=== PATIENT | female | born 1945 | race Caucasian/White ===

== ENCOUNTER → 2017-01-14 | Outpatient (REF) | payer MEDICARE, BC ==
[~2017-01-14] MED LIST: /WARF25TA PO; ACET50TA PO; CALC600T7 PO; FLUOXETINE PO; LYRICA PO; MULTTAB PO; PERC2.5T PO; PERC7.5T12 PO; PREDPOW10 PO; VITAMIN D PO
[2017-01-14 12:02] LABS: ALBUMIN 3.9 GM/DL (3.2-5.2); ALKALINE PHOSPHATASE 90 U/L (45-117); ALT/SGPT 28 U/L (12-78); ANION GAP 10 MEQ/L (8-16); AST/SGOT 19 U/L (15-37); BILIRUBIN,TOTAL 0.9 MG/DL (0.2-1.0); BLOOD UREA NITROGEN 15 MG/DL (7-18); CARBON DIOXIDE LEVEL 28 MEQ/L (21-32); CHLORIDE LEVEL 106 MEQ/L (98-107); CREATININE FOR GFR 0.82 MG/DL (0.55-1.02); GLOMERULAR FILTRATION RATE > 60.0 (>39); GLUCOSE, FASTING 100 MG/DL (83-110); POTASSIUM SERUM 4.7 MEQ/L (3.5-5.1); SODIUM LEVEL 144 MEQ/L (136-145); TOTAL PROTEIN 6.9 GM/DL (6.4-8.2)
== END ==
LOC: M SFHCPLAZ 11:11
PROVIDERS: ATTEND Internal Medicine
DX: I10 Essential (primary) hypertension (principal); M81.0 Age-related osteoporosis without current pathological fracture

== ENCOUNTER → 2017-07-15 | Outpatient (REF) | payer MEDICARE, BC ==
[2017-07-15 11:58] LABS: MEAN CORPUSCULAR VOLUME 91.4 fl (80.0-96.0); RED CELL DISTRIBUTION WIDTH 12.7 % (11.5-14.5); WHITE BLOOD COUNT 5.1 K/mm3 (4.0-10.0)
[2017-07-15 12:12] LABS: ALBUMIN 3.7 GM/DL (3.2-5.2); ALBUMIN/GLOBULIN RATIO 1.32 (1.00-1.93); ALKALINE PHOSPHATASE 74 U/L (45-117); ALT/SGPT 23 U/L (12-78); ANION GAP 8 MEQ/L (8-16); AST/SGOT 17 U/L (15-37); BILIRUBIN,TOTAL 0.7 MG/DL (0.2-1.0); BLOOD UREA NITROGEN 11 MG/DL (7-18); CALCIUM LEVEL 8.5 MG/DL (8.8-10.2); CARBON DIOXIDE LEVEL 27 MEQ/L (21-32); CHLORIDE LEVEL 109 MEQ/L (98-107); CHOLESTEROL LEVEL 189 MG/DL (<200); CREATININE FOR GFR 0.78 MG/DL (0.55-1.02); GLOMERULAR FILTRATION RATE > 60.0 (>39); GLUCOSE, FASTING 91 MG/DL (83-110); POTASSIUM SERUM 4.6 MEQ/L (3.5-5.1); SODIUM LEVEL 144 MEQ/L (136-145); TOTAL PROTEIN 6.5 GM/DL (6.4-8.2); TRIGLYCERIDES LEVEL 146 MG/DL (<150)
== END ==
LOC: M SFHCPLAZ 09:12
PROVIDERS: ATTEND Internal Medicine
DX: M19.90 Unspecified osteoarthritis, unspecified site (principal); I10 Essential (primary) hypertension; E78.00 Pure hypercholesterolemia, unspecified

== ENCOUNTER → 2019-02-23 | Outpatient (REF) | payer MEDICARE, BC ==
[2019-02-23 10:47] LABS: HEMATOCRIT 45.5 % (36.0-47.0); HEMOGLOBIN 14.8 g/dl (12.0-15.5); MEAN CORPUSCULAR HEMOGLOBIN 30.1 pg (27.0-33.0); MEAN CORPUSCULAR HGB CONC 32.5 g/dl (32.0-36.5); MEAN CORPUSCULAR VOLUME 92.7 fl (80.0-96.0); PLATELET COUNT, AUTOMATED 219 10^3/uL (150-450); RED BLOOD COUNT 4.91 10^6/uL (4.00-5.40); WHITE BLOOD COUNT 5.7 10^3/uL (4.0-10.0)
[2019-02-23 11:17] LABS: ERYTHROCYTE SEDIMENTATION RATE 10 mm/hr (0-30)
[2019-02-23 11:19] LABS: ALBUMIN 3.8 GM/DL (3.2-5.2); ALT/SGPT 27 U/L (12-78); BILIRUBIN,TOTAL 0.9 MG/DL (0.2-1.0); BLOOD UREA NITROGEN 14 MG/DL (7-18); C REACTIVE PROTEIN QUANTITATIV 0.83 MG/DL (0.00-0.30); CALCIUM LEVEL 8.7 MG/DL (8.8-10.2); CARBON DIOXIDE LEVEL 31 MEQ/L (21-32); CHLORIDE LEVEL 105 MEQ/L (98-107); CHOLESTEROL LEVEL 191 MG/DL (<200); CREATININE FOR GFR 0.75 MG/DL (0.55-1.30); GLOMERULAR FILTRATION RATE > 60.0 (>39); GLUCOSE, FASTING 90 MG/DL (70-100); HDL CHOLESTEROL 62 MG/DL (>40); LDL CHOLESTEROL 97 MG/DL (<100); MAGNESIUM LEVEL 2.3 MG/DL (1.8-2.4); NON-HDL-C 129 MG/DL; POTASSIUM SERUM 4.4 MEQ/L (3.5-5.1); SODIUM LEVEL 141 MEQ/L (136-145); TOTAL PROTEIN 7.1 GM/DL (6.4-8.2); TRIGLYCERIDES LEVEL 158 MG/DL (<150)
[2019-02-25 00:08] LABS: Lyme Disease IgG/IgM Antibodie <0.91 ISR (0.00-0.90); Lyme Disease IgM Ab Quantitati <0.80 index (0.00-0.79)
== END ==
LOC: M SFHCPLAZ 08:21
PROVIDERS: ATTEND Internal Medicine
DX: D32.0 Benign neoplasm of cerebral meninges (principal); I10 Essential (primary) hypertension; M35.3 Polymyalgia rheumatica; E78.00 Pure hypercholesterolemia, unspecified

== ENCOUNTER → 2019-03-28 | Outpatient (REF) | payer MEDICARE, BC ==
[~2019-03-28] MED LIST changes: -/WARF25TA PO; -ACET50TA PO; +COUM1TAB18 PO; +MAPA500T17 PO
[2019-03-28 12:37] LABS: BLOOD UREA NITROGEN 14 MG/DL (7-18); CREATININE FOR GFR 0.84 MG/DL (0.55-1.30); GLOMERULAR FILTRATION RATE > 60.0 (>39)
== END ==
LOC: M LABDRAWP 11:39
PROVIDERS: ATTEND Neurological Surgery
DX: D32.0 Benign neoplasm of cerebral meninges (principal)

== ENCOUNTER → 2019-08-13 | Outpatient (CLI) | payer MEDICARE, BC ==
[~2019-08-13] MED LIST changes: +D-10TAB3 PO; +HYDR-3713 PO; +MULTCAP PO; +OYST1TAB PO; +PERC5TAB12 PO; +PREG50CA PO; +PROZ20CA11 PO; +XARE10TA PO
[2019-08-13 10:12] LABS: HEMATOCRIT 44.7 % (36.0-47.0); HEMOGLOBIN 14.7 g/dl (12.0-15.5); MEAN CORPUSCULAR HGB CONC 32.9 g/dl (32.0-36.5); MEAN CORPUSCULAR VOLUME 94.3 fl (80.0-96.0); PLATELET COUNT, AUTOMATED 240 10^3/uL (150-450); RED BLOOD COUNT 4.74 10^6/uL (4.00-5.40); WHITE BLOOD COUNT 5.9 10^3/uL (4.0-10.0)
[2019-08-13 10:33] LABS: INR 1.02; PROTHROMBIN TIME 13.1 SECONDS (11.8-14.0)
[2019-08-13 10:37] LABS: ALBUMIN 3.9 GM/DL (3.2-5.2); ALT/SGPT 29 U/L (12-78); BILIRUBIN,TOTAL 1.3 MG/DL (0.2-1.0); BLOOD UREA NITROGEN 11 MG/DL (7-18); CALCIUM LEVEL 9.4 MG/DL (8.8-10.2); CARBON DIOXIDE LEVEL 28 MEQ/L (21-32); CHLORIDE LEVEL 105 MEQ/L (98-107); CREATININE FOR GFR 0.87 MG/DL (0.55-1.30); GLOMERULAR FILTRATION RATE > 60.0 (>39); GLUCOSE, FASTING 101 MG/DL (70-100); POTASSIUM SERUM 4.4 MEQ/L (3.5-5.1); SODIUM LEVEL 141 MEQ/L (136-145); TOTAL PROTEIN 6.9 GM/DL (6.4-8.2)
--- NOTE | 2019-08-13 10:59 | REP ---
PA and lateral chest: Comparison is 10/02/2013. There are no infiltrates. No pleural effusions. There are several tiny nodule like densities inferiorly in the right lung, not present previously. These are nonspecific and could represent small focal zones of atelectasis, superimposition artifact or true lung nodules. Follow-up CT is recommended for further evaluation. The lung stein otherwise clear. Cardiac size is normal. The gisel, mediastinum, skeletal structures are. Impression: There are no acute cardiopulmonary findings. There are several small nodular densities inferiorly in the right lung, nonspecific, follow-up CT is recommended for further evaluation. Electronically Signed by Ross Murray MD 08/13/2019 10:50 A
[2019-08-13 11:04] LABS: ERYTHROCYTE SEDIMENTATION RATE 11 mm/hr (0-30)
--- NOTE | 2019-08-14 08:46 | ECGEPIP ---
[facility] Test Date: 2019-08-13 Pat Name: REVA IZQUIERDO Department: Room: - Gender: Female Production Dispatcher: ESME : [id number] Requested By: Miriam Putnam Order Number: [id number] Reading MD: Alex Feng Measurements Intervals [place] Rate: 50 P: 63 SC: 163 QRS: 29 QRSD: 111 T: -10 QT: 457 QTc: 419 Interpretive Statements SINUS BRADYCARDIA WITH Trigeminy Nonspecific ST-T wave abnormalities Electronically Signed on 08-14-2019 8:45:45 EDT by Alex Feng
== END ==
LOC: M LAB 08:56
PROVIDERS: ATTEND Orthopaedic Surgery
DX: Z01.818 Encounter for other preprocedural examination (principal); M16.11 Unilateral primary osteoarthritis, right hip; Z79.01 Long term (current) use of anticoagulants

== ENCOUNTER → 2019-08-24 | Outpatient (CLI) | payer MEDICARE, BC ==
[~2019-08-24] MED LIST changes: -HYDR-3713 PO
--- NOTE | 2019-08-24 16:11 | REP ---
CT of the chest without IV contrast: Comparison is the plain film study dated 08/13/2019 where several small faintly visible nodular densities are identified inferiorly in the right lung. By CT there are no nodular densities, vertically in the right lung inferiorly. Therefore, this finding on the comparison study was probably superimposition artifact. There are no infiltrates. No effusions. The lung stein otherwise clear. There is no mediastinal or axillary lymphadenopathy. In the absence of IV contrast the study is insensitive for hilar lymphadenopathy. The unenhanced thoracic aorta is unremarkable. The cardiac size is normal. Within the visualized upper abdomen there is hepatic steatosis. There is a calculus in the gallbladder fundus. The visualized upper abdominal contents are otherwise unremarkable. Impression: Gallbladder calculus. Hepatic steatosis. There are no lung masses or nodules. The nodular densities on the comparison study are likely superimposition artifact. Otherwise, negative CT study of the chest. Electronically Signed by Ross uMrray MD 08/24/2019 04:03 P
== END ==
LOC: M RAD 13:56
PROVIDERS: ATTEND Internal Medicine
DX: R93.89 Abnormal findings on diagnostic imaging of other specified body structures (principal)

== ENCOUNTER 2019-09-03 05:52 | Inpatient (IN) | payer MEDICARE, BC ==
--- NOTE | 2019-08-27 13:10 | HPE ---
DATE OF ADMISSION: 09/03/2019 ATTENDING PHYSICIAN: Dr. Jersey Flores CHIEF COMPLAINT: Right hip pain and stiffness. HISTORY OF PRESENT ILLNESS: This is a pleasant 73-year-old female patient with progressively worsening right hip pain and stiffness who has failed to improve with conservative treatment. She has elected for right hip total arthroplasty with Dr. Jersey Flores. ALLERGIES: - AZITHROMYCIN - IBUPROFEN PAST MEDICAL HISTORY: Hypercholesterolemia, hypertension, osteoarthritis, cholelithiasis, neoplasm of the cerebral meninges, transient global amnesia, osteoporosis, polymyalgia rheumatica, history of diverticulitis. PAST SURGICAL HISTORY: Tubal ligation, total abdominal hysterectomy ([place]) with unilateral bilateral salpingo-oophorectomy (BSO), lumbar laminectomy, needle biopsy of left breast, LASIK, biopsy of vulvar lesion, colonoscopy, carpal tunnel release, left total hip replacement, right acromioclavicular (AC) joint debridement, bilateral cataract extractions. CURRENT MEDICATIONS: - multivitamin one by mouth daily - vitamin D3 1000 units two by mouth daily - calcium 200 mg one by mouth daily - Nystatin topical applied to affected area two times daily - Prozac 20 mg one by mouth daily - Lyrica 50 mg one by mouth twice a day FAMILY HISTORY: Father cardiomyopathy, hypertension, diabetes, abdominal aortic aneurysm. Mother hypertensive, carotid artery disease. Sister hypertension, diabetes. Brother hypertension, chronic obstructive pulmonary disease (COPD). SOCIAL HISTORY: The patient is a nonsmoker and denies any alcohol use. REVIEW OF SYSTEMS: Denies fever, chills, chest pain, shortness breath, nausea, vomiting, diarrhea. Does report pain with weightbearing activities in the right hip. PHYSICAL EXAMINATION: Vital Signs: Height 5 feet 7.5 inhes, weight 211.4 pounds, temperature 98.1, blood pressure 140/92, and pulse 72. She is normocephalic, atraumatic. Neck is supple and nontender with no lymphadenopathy or jugular venous distention (JVD). S1 and S2 auscultated with trigeminy rhythm. Lungs: Clear to auscultation bilaterally with no wheezes, rales or rhonchi. Abdomen: Soft and nontender. The right lower extremity reveals discomfort with range of motion of the right hip. The overlying skin is intact and there is no erythema, warmth or rashes. The right lower extremity is well perfused. Summary of CT scan of the chest reveals no lung masses or nodules. There is gallbladder calculus and hepatic steatosis EKG: Sinus bradycardia with trigeminy, nonspecific ST-T wave abnormalities. LABS: White count 5.9, red count 4.74, hemoglobin 14.7, hematocrit 44.7, ESR 11, BUN 11, creatinine 0.87, PT 13.1, INR 1.02. MEDICAL OPTIMIZATION: By Dr. Gonzales reviewed today on chart. IMPRESSION: Symptomatic right hip osteoarthritis. PLAN: Consented for right total hip arthroplasty with Dr. Jersey Flores.
[~2019-09-03] VITALS: Ht 170.2 cm; Wt 100.2 kg
[~2019-09-03 05:52] MED LIST changes: -PERC5TAB12 PO; -XARE10TA PO
[2019-09-03] MEDS ORDERED: LIDOCAINE 1% MDV 20ML VIAL SQ PRN (06:00)
[2019-09-03] MEDS ORDERED: ACETAMINOPHEN 500 MG TAB As Ordered ONE (06:15)
[2019-09-03] MEDS ORDERED: ceFAZolin SOD 2 GM in IV 1 EA IV ONE (07:00)
[2019-09-03] MEDS ORDERED: LR 1,000 ML IV ONE (07:00)
[2019-09-03] MEDS ORDERED: ceFAZolin 1GM INJ (J0690 PER 500MG) As Ordered ONE (07:12)
[2019-09-03] MEDS ORDERED: fentaNYL 100 MCG/2 ML INJECTION (J3010) As Ordered ONE (07:55)
[2019-09-03] MEDS ORDERED: ePHEDrine SULFATE 25 MG/5 ML(5MG/ML) SYRINGE As Ordered ONE (07:55)
[2019-09-03] MEDS ORDERED: PROPOFOL 200 MG/20 ML VIAL As Ordered ONE (07:55)
[2019-09-03] MEDS ORDERED: MIDAZOLAM INJ 2 MG/2 ML VIAL (J2250) As Ordered ONE (07:55)
[2019-09-03] MEDS ORDERED: ePHEDrine INJ 50 MG/ML VIAL As Ordered ONE (08:42)
[2019-09-03] MEDS ORDERED: PERCOCET 5MG/325MG TAB PO PRN ×2 (09:30→14:00)
[2019-09-03] MEDS ORDERED: LR 1,000 ML IV SCH ×2 (09:30→11:45)
[2019-09-03] MEDS ORDERED: ONDANSETRON 4MG/2ML VIAL (J2405) IV PRN (09:30)
[2019-09-03] MEDS ORDERED: fentaNYL 100 MCG/2 ML INJECTION (J3010) IV PRN (09:30)
--- NOTE | 2019-09-03 09:46 | REP ---
Right hip two views postoperative study performed portably: There is a total hip arthroplasty with the components tightly applied and in satisfactory positions alignment. Skin alvarez are incidentally noted. Electronically Signed by Ross Murray MD 09/03/2019 09:37 A
[2019-09-03 11:30] VITALS: BP 137/83
[2019-09-03] MEDS ORDERED: HYDROMORPHONE HCL 0.5 MG/ 0.5 ML SYRINGE (J1170 PER 1) IV PRN ×2 (11:45)
[2019-09-03] MEDS ORDERED: FLEET ENEMA PR PRN (11:45)
[2019-09-03] MEDS ORDERED: ACETAMINOPHEN TAB 650MG DOSE (2X325MG) PO PRN (11:45)
[2019-09-03 12:07] VITALS: BP 132/76
[2019-09-03] MEDS: MULTIVITAMINS/MINERALS THERAP 1 TAB PO SCH (12:09)
[2019-09-03] MEDS: VITAMIN D 1,000 INTERNATIONAL UNITS TABLET PO SCH (12:09)
[2019-09-03] MEDS: FLUoxetine 20 MG CAP PO SCH (12:09)
[2019-09-03 12:21] LABS: HEMATOCRIT 39.9 % (36.0-47.0); HEMOGLOBIN 13.1 g/dl (12.0-15.5); MEAN CORPUSCULAR HEMOGLOBIN 30.8 pg (27.0-33.0); MEAN CORPUSCULAR HGB CONC 32.8 g/dl (32.0-36.5); MEAN CORPUSCULAR VOLUME 93.9 fl (80.0-96.0); PLATELET COUNT, AUTOMATED 175 10^3/uL (150-450); RED BLOOD COUNT 4.25 10^6/uL (4.00-5.40); WHITE BLOOD COUNT 8.9 10^3/uL (4.0-10.0)
[2019-09-03] MEDS ORDERED: ACETAMINOPHEN 500 MG TAB PO ONE (12:30)
[2019-09-03 12:54] VITALS: BP 134/77
[2019-09-03 12:56] LABS: BLOOD UREA NITROGEN 14 MG/DL (7-18); CALCIUM LEVEL 8.4 MG/DL (8.8-10.2); CARBON DIOXIDE LEVEL 30 MEQ/L (21-32); CHLORIDE LEVEL 105 MEQ/L (98-107); CREATININE FOR GFR 0.75 MG/DL (0.55-1.30); GLOMERULAR FILTRATION RATE > 60.0 (>39); GLUCOSE, FASTING 96 MG/DL (70-100); MAGNESIUM LEVEL 1.9 MG/DL (1.8-2.4); POTASSIUM SERUM 3.6 MEQ/L (3.5-5.1); SODIUM LEVEL 141 MEQ/L (136-145)
--- NOTE | 2019-09-03 13:18 | RO ---
DATE OF PROCEDURE: 09/03/2019 PREOPERATIVE DIAGNOSIS: Right hip degenerative arthritis. POSTOPERATIVE DIAGNOSIS: Right hip degenerative arthritis. PROCEDURE: Right total hip arthroplasty using a size 5 standard offset [place] stem with a +5 neck and a 32 mm ball and a 50 mm GRIPTION cup. The prosthesis was made by [employer] SURGEON: Miriam Flores MD NONPROFIT DIRECTOR: Carlita Ramirez PA-C ANESTHESIA: Spinal. COMPLICATIONS: Femoral head. ESTIMATED BLOOD LOSS: 150 mL. PROCEDURE: Antibiotics were given intravenously preoperatively, then a successful spinal anesthetic was induced. She was placed in lateral decubitus position, right hip uppermost, [place] hip positioner was utilized, axillary role utilized, down leg well padded, especially the peroneal nerve. The right hip area was then carefully prepped and draped in the usual sterile fashion. After appropriate time out, a longitudinal lateral incision was made for a direct lateral approach to the hip. Bovie cautery was used to coagulate vessels. We divided te tensor fascia in line with the skin incision then split the gluteus medius, anterior one-third and posterior two-third junction. Underlying gluteus minimus and anterior hip capsule were then divided and soft tissues were carefully dissected off the proximal femur as we externally rotated the hip and dislocated anteriorly. A starter reamer was placed in the piriformis fossa followed by the canal finding reamer, then the lateralizing reamer and then we began reaming up to a size 5. Femoral neck osteotomy performed, then broached up to a size 5. We then exposed the acetabulum and performed a labral excision 360 degrees, then began reaming at 46 mm and advanced up to 49. The 50 trial fit nicely. We then copiously irrigated out the acetabulum, placed the real size 50 GRIPTION cup and central hole eliminator was placed, and we placed the polyethylene after irrigating copiously. We trialed with the size 5 broach, standard offset and the +5 had the best stability and she was very stable with flexion, internal rotation, extension and external rotation with minimal soft tissue telescoping. Thus we removed all the removed all the trial components, copiously pulsatile lavage irrigated out the femoral canal, then placed the real #5 stem, dried the trunnion and placed the head and then reduced the hip. We then began closing anatomically after irrigating the anterior hip capsule and the gluteus minimus and then the medius back in layers, irrigating between layers, then closed the tensor fascia with a combination of #1 PDS sutures and a running #1 STRATAFIX. Irrigated between layers again, closed the deep subdermal tissues with interrupted #2-0 PDS sutures. Skin was closed with alvarez, covered by an Optifoam dry sterile bulky dressing, and she was turned supine then transferred to the recovery room in stable condition. There were no intraoperative complications. Miss Carlita Ramirez was critical to the success of this difficult surgery by helping to manipulate the leg in and out of the leg bag, helped with focused soft tissue retraction, helped with close the wound and prepare the patient, amongst many other tasks to allow me to perform the operation smoothly, efficiently and safely.
[2019-09-03] MEDS: OYSTER SHELL CALCIUM 500 MG TAB PO SCH (13:24)
[2019-09-03] MEDS: ceFAZolin SOD 2 GM in IV 1 EA IV SCH ×2 (13:25→19:46)
[2019-09-03 13:59] VITALS: BP 138/77
[2019-09-03] MEDS: PERCOCET 5MG/325MG TAB PO PRN ×2 (14:23→20:44)
[2019-09-03 14:56] VITALS: BP 137/78
--- NOTE | 2019-09-03 14:57 | CR ---
DATE OF CONSULTATION: 09/03/2019 REFERRING PHYSICIAN: Orthopedic surgeon Dr. Jersey Flores. REASON FOR CONSULTATION: Management of chronic medical problems. HISTORY OF PRESENTING ILLNESS: 73-year-old female with past medical history significant for osteoarthritis, cerebromeningeal cancer, transient global amnesia, hypercholesterolemia, hypertension, osteoarthritis, osteoporosis, polymyalgia rheumatica, and diverticulitis presented for elective right hip replacement due to severe osteoarthritis. The patient has otherwise been cleared by her primary care physician and has been medically optimized. The patient underwent right total hip arthroplasty with no complications. In recovery room, she denies any pain rating her discomfort 1/10. Unable to move her toes and feel her lower extremities due to anesthesia. She otherwise denies any shortness of breath, chest pain, pressure or tightness, lightheadedness, dizziness, fever, chills, rhinorrhea, sore throat, ear pain, vertigo, nausea, vomiting, abdominal pain, dysuria, urgency or frequency, changes in weight, rash, anxiety or depression in the past. Hospitalist service was called to manage chronic medical problems. PAST MEDICAL HISTORY: 1. Hypercholesterolemia. 2. Cholelithiasis. 3. Osteoarthritis. 4. Transient global amnesia. 5. Diverticulosis. 6. Hypercholesterolemia. 7. Cerebromeningeal malignancy. 8. Osteoporosis. 9. Polymyalgia rheumatica. PAST SURGICAL HISTORY: 1. Bilateral cataract extractions. 2. Total abdominal hysterectomy with unilateral bilateral salpingo-oophorectomy. 3. Carpal tunnel release. 4. Tubal ligation. 5. Lumbar laminectomy. 6. Left total hip replacement. 7. Right acromioclavicular (AC) joint debridement. 8. Needle biopsy of the left breast. 9. LASIK surgery. 10. Vulvar biopsy. 11. Colonoscopy. 12. HOME MEDICATIONS: - Lyrica 50 mg twice a day - vitamin D 1000 units daily - Prozac 20 mg daily - Nystatin topically as needed twice a day - multivitamin one tablet daily - calcium 200 mg daily HOSPITAL MEDICATIONS: - Xarelto 10 mg daily - cefazolin - LR - Fleets enema - Tylenol - Dilaudid - Os-Demetris - vitamin D - Prozac - multivitamins ALLERGIES: To AZITHROMYCIN, IBUPROFEN. FAMILY HISTORY: Sister with hypertension and diabetes. Father with hypertension, diabetes, abdominal aortic aneurysm, and cardiomyopathy. Brother with chronic obstructive pulmonary disease (COPD), hypertension, smoker. Mother with carotid artery disease and hypertension. SOCIAL HISTORY: The patient is retired. Previously worked as a medical secretary receptionist. Currently lives alone. Has a daughter in the area. She has a walker and a cane at home, and has a ramp going into her house. Never smoked cigarettes. Does not drink any alcohol. Denies recreational drug use. REVIEW OF SYSTEMS: Per history of presenting illness (HPI). 12-point system otherwise negative aside from positive findings from the history of presenting illness. PHYSICAL EXAMINATION: Vital Signs: Temperature 97.4, pulse 65, respiratory rate 11, blood pressure 137/83, 95% on 3 liters nasal cannula. Generally, the patient is awake, alert, oriented to person. Answers questions appropriately. No facial asymmetry. The patient has no use of respiratory accessory muscles. Anicteric. No jaundice. HEENT: No cervical lymphadenopathy, thyromegaly, or jugular venous distention. Lungs are clear to auscultation. No wheezing, rales or rhonchi. Heart: S1, S2. Sinus rhythm. No murmurs, rubs or gallop. Abdomen is soft, nontender, nondistended. Positive bowel sounds times four quadrants. No rebound guarding. No hepatosplenomegaly. No abdominal bruits. Extremities: Post-op right hip. Skin: Warm, dry, well perfused. [place] in color. Unable to wiggle her toes yet due to anesthesia. LABORATORY DATA: White count 8.9, hemoglobin 13, hematocrit 39, platelet count 175. TSH 2.7. Sodium 141, potassium 3.6, chloride 105, bicarbonate 30, BUN 14, creatinine 0.75, glucose of 96, magnesium of 1.9. IMAGING STUDIES: Hip x-ray: Total hip arthroplasty tightly applied in satisfactory position of the right hip. Skin alvarez are noted incidentally. ASSESSMENT AND PLAN: This is a 73-year-old female, presented for elective right hip arthroplasty due to sever osteoarthritis with history of neoplasm of the cerebral meninges, hypertension, hypercholesterolemia, transient global amnesia, cholelithiasis, osteoporosis, polymyalgia rheumatica (PMR), and diverticulitis. Current issues are: 1. Right hip osteoarthritis with decreased activities of daily living (ADL) status post right total hip arthroplasty, stem, neck and ball and cup prosthesis. post-op management per primary team. Cautious use of Dilaudid, which may cause hypotension. On Xarelto for deep venous thrombosis (DVT) prophylaxis. LR postoperatively and acetaminophen for fevers. She is continued on vitamin D 2000 units and calcium, multivitamin and perioperative cefazolin. Acute rehabilitation unit (ARU) screen, physical therapy, activity as tolerated and fall precautions. 2. Cerebromeningeal cancer with transient global amnesia at baseline. 3. Hypertension. Currently controlled. 4. Dyslipidemia. On no medication and check lipid panel in the morning. 5. Asymptomatic cholelithiasis. No further followup required. 6. Osteoporosis. On vitamin D and calcium supplementation. 7. PMR, chronic. Uses Lyrica and Prozac chronically. 8. DVT prophylaxis. Currently on Xarelto 10 mg daily. MTDD
[2019-09-04] MEDS: PERCOCET 5MG/325MG TAB PO PRN ×3 (01:46→09:18)
[2019-09-04 01:52] VITALS: BP 147/90
[2019-09-04 06:01] LABS: HEMATOCRIT 38.1 % (36.0-47.0); HEMOGLOBIN 12.5 g/dl (12.0-15.5); MEAN CORPUSCULAR HEMOGLOBIN 30.5 pg (27.0-33.0); MEAN CORPUSCULAR HGB CONC 32.8 g/dl (32.0-36.5); MEAN CORPUSCULAR VOLUME 92.9 fl (80.0-96.0); PLATELET COUNT, AUTOMATED 183 10^3/uL (150-450); WHITE BLOOD COUNT 7.6 10^3/uL (4.0-10.0)
[2019-09-04 06:09] VITALS: BP 124/69
[2019-09-04 06:11] LABS: INR 1.18; PROTHROMBIN TIME 14.7 SECONDS (11.8-14.0)
[2019-09-04 06:29] LABS: BLOOD UREA NITROGEN 12 MG/DL (7-18); CALCIUM LEVEL 8.5 MG/DL (8.8-10.2); CARBON DIOXIDE LEVEL 28 MEQ/L (21-32); CHLORIDE LEVEL 103 MEQ/L (98-107); CHOLESTEROL LEVEL 135 MG/DL (<200); CHOLESTEROL RISK RATIO 2.076 (<5); GLOMERULAR FILTRATION RATE > 60.0 (>39); GLUCOSE, FASTING 130 MG/DL (70-100); HDL CHOLESTEROL 65 MG/DL (>40); LDL CHOLESTEROL 52 MG/DL (<100); NON-HDL-C 70 MG/DL; POTASSIUM SERUM 4.2 MEQ/L (3.5-5.1); SODIUM LEVEL 138 MEQ/L (136-145); TRIGLYCERIDES LEVEL 91 MG/DL (<150)
[2019-09-04 06:53] LABS: HEMOGLOBIN A1c 5.7 %
[2019-09-04] MEDS ORDERED: PERC5TAB12 PO (07:40)
[2019-09-04] MEDS ORDERED: XARE10TA PO (07:40)
[2019-09-04] MEDS ORDERED: MOM 30ML SUSPENSION UDC PO SCH (09:00)
[2019-09-04] MEDS ORDERED: SENOKOT S TAB PO SCH (09:00)
[2019-09-04] MEDS ORDERED: MIRALAX *UNIT DOSE* 17GM PACKET PO SCH (09:00)
[2019-09-04] MEDS: VITAMIN D 1,000 INTERNATIONAL UNITS TABLET PO SCH (09:17)
[2019-09-04] MEDS: MULTIVITAMINS/MINERALS THERAP 1 TAB PO SCH (09:17)
[2019-09-04] MEDS: FLUoxetine 20 MG CAP PO SCH (09:17)
[2019-09-04] MEDS: OYSTER SHELL CALCIUM 500 MG TAB PO SCH (09:18)
--- NOTE | 2019-09-04 09:30 | IPN ---
DATE: 09/04/2019 The patient complains of pain at 4/10. No fever or chills overnight. The patient has had no other issues. She is tolerating her diet well. No insomnia. No nausea or vomiting. No epigastric pain. PHYSICAL EXAMINATION: VITAL SIGNS: Temperature 98.5, pulse 78, respiratory rate 13, blood pressure 124/60, 93% on room air. GENERAL: Awake, alert and oriented times three. Answering questions appropriately. LUNGS: Clear to auscultation. No wheezing, rales or rhonchi. HEART: S1, S2. Sinus rhythm. ABDOMEN: Soft, nontender, nondistended. Positive bowel sounds. EXTREMITIES: Postoperative right hip. Skin is warm, dry, well perfused, pink in color. LABORATORY DATA: White count 7.6, hemoglobin 12, hematocrit 38, platelet count 183. Sodium 138, potassium 4.2, chloride 103, bicarbonate 28, BUN 12, creatinine 0.9, glucose of 130, A1/c of 5.7. ASSESSMENT AND PLAN: This is a 73-year-old female with a history of hypercholesterolemia, transient global aphasia, cerebromeningeal malignancy, osteoarthritis, cholelithiasis, diverticulosis, osteoporosis, and polymyalgia rheumatica, admitted for right total hip arthroplasty with no complications postoperatively. CURRENT ISSUES: 1. Right hip total arthroplasty. Postoperative management per primary team, orthopedic surgery, for deep vein thrombosis (DVT) prophylaxis, pain control, bowel regimen, and activity level. She is continued on vitamin D, calcium, multivitamin, perioperative cefazolin. Physical therapy (PT) and occupational therapy (OT). Activity as tolerated. 2. Hypertension, controlled. 3. Cerebromeningeal cancer with transient global amnesia. Currently at baseline. 4. Dyslipidemia, stable. 5. Asymptomatic cholelithiasis. No further followup required as she has no complaints. 6. Osteoporosis. Vitamin D and calcium supplements. 7. Polymyalgia rheumatica. On Lyrica. 8. Deep vein thrombosis (DVT) prophylaxis. On Xarelto 10 mg daily. MTDD
[2019-09-04 10:00] VITALS: BP 127/74
[2019-09-04] MEDS ORDERED: FLUBLOK(EGG FREE)(QUAD)INFLUENZA VACC 0.5ML SYRINGE (90682)18YRS&OLDER IM ONE (12:00)
[2019-09-04] MEDS ORDERED: RIVAROXABAN 10 MG TAB (XARELTO) PO SCH (18:00)
--- NOTE | 2019-09-06 17:39 | DSES ---
DATE OF ADMISSION: 09/03/2019 DATE OF DISCHARGE: 09/04/2019 ATTENDING PHYSICIAN: Dr. Flores ADMISSION DIAGNOSIS: Right hip degenerative arthritis. OTHER DIAGNOSES: 1. Hyperlipidemia. 2. Hypertension. 3. Cholelithiasis. 4. Transient global amnesia. 5. Polymyalgia rheumatica. 6. Neoplasm of the cerebral meninges. DISCHARGE DIAGNOSIS: Right hip degenerative arthritis, status post right total hip arthroplasty. HISTORY: The patient is a 73-year-old female with progressively worsening right hip pain and stiffness. She failed to improve with conservative measures. She continued to have symptoms with weightbearing activities and activities of daily living. She consented for an elective right total hip arthroplasty with Dr. Flores for her continued symptoms. OPERATION PERFORMED: Right total hip arthroplasty. HOSPITAL COURSE: The patient underwent a right total hip arthroplasty under spinal anesthesia which was uneventful. Her hospital course was without complication and she was up with physical therapy per their protocol, weightbearing as tolerated on the right lower extremity. The patient was discharged on oral pain medications and will resume her preoperative medications and diet. The patient will use her thromboembolic-deterrent stockings and take her anticoagulant as directed postoperatively to prevent deep venous thrombosis. The patient will followup in our office in 12-14 days for a wound check and staple removal. She is encouraged to contact our office sooner if there is any increase in pain, redness, drainage, numbness or tingling in the extremity, fever greater than 101 degrees, or any other concerns. Please see the medical record for additional details.
== END 2019-09-04 12:25 | disposition home health service (06) | DRG 470 ==
LOC: M OR 05:52 → M MS5PR 11:20
PROVIDERS: ADMIT Orthopaedic Surgery; ATTEND Orthopaedic Surgery
PROC: 0SR90JA Replacement of Right Hip Joint with Synthetic Substitute, Uncemented, Open Approach (ICD-10-PCS; principal; 2019-09-03 07:30)
DX: M16.11 Unilateral primary osteoarthritis, right hip (principal); C70.0 Malignant neoplasm of cerebral meninges; Z88.8 Allergy status to other drugs, medicaments and biological substances; E78.00 Pure hypercholesterolemia, unspecified; I10 Essential (primary) hypertension; M81.0 Age-related osteoporosis without current pathological fracture; M35.3 Polymyalgia rheumatica; Z79.899 Other long term (current) drug therapy; K57.30 Diverticulosis of large intestine without perforation or abscess without bleeding; E78.5 Hyperlipidemia, unspecified

== ENCOUNTER 2019-10-19 16:37 | Inpatient (IN) | payer MEDICARE, BC ==
[~2019-10-19] VITALS: Ht 170.2 cm; Wt 92.9 kg
[~2019-10-19 16:37] MED LIST changes: +PERC5TAB12 PO; +XARE10TA PO
[2019-10-19] MEDS ORDERED: MORPHINE 4 MG/ML 1ML VIAL/SYRINGE (J2270) IV ONE (17:15)
--- NOTE | 2019-10-19 18:37 | REPVR ---
PROCEDURE INFORMATION: Exam: CT Left Lower Extremity Without Contrast, Knee Exam date and time: 10/19/2019 5:58 PM Age: 74 years old Clinical history: Pain; Knee; Left; Additional info: Without contrast--possible quad/patellar rupture TECHNIQUE: Imaging protocol: CT of the Left lower extremity without contrast was performed. Exam focused on the knee. Radiation optimization: All CT scans at this facility use at least one of these dose optimization techniques: automated exposure control; mA and/or kV adjustment per patient size (includes targeted exams where dose is matched to clinical indication); or iterative reconstruction. COMPARISON: CR Knee, complete LEFT 10/19/2019 5:27 PM FINDINGS: Bones/joints: Apparent chronically fragmented osteophytes along the medial and superior patella. Small superior patellar enthesophyte. Mild tricompartmental DJD. No acute fracture. No dislocation. Large knee joint hemarthrosis. Soft tissues: No full-thickness tear of the distal quadriceps tendon. Vasculature: Scattered vascular calcifications. IMPRESSION: Large knee joint hemarthrosis, of uncertain etiology. Consider further evaluation with MRI. Electronically signed by: Shani Gore On 10/19/2019 18:36:43 PM
--- NOTE | 2019-10-19 19:47 | CR.PDOC ---
General Date of Consultation: Oct 19, 2019 Consultation REASON FOR CONSULTATION/CHIEF COMPLAINT: Left knee pain HISTORY OF PRESENT ILLNESS: Patient is 74-year-old female with past medical history of polymyalgia rheumatica, meningiomas, recent hip replacement presented hospital with left knee pain. Patient stated that 6 weeks ago she had left hip replacement and she used a walker and cane and today she twisted her knee and developed severe left knee pain. In emergency room patient was consulted by orthopedic surgeon, MRI was ordered, there is suspicion for suprapatellar tendon rupture. Patient denied fever, chills, nausea, vomiting, palpitations, shortness of breath, diarrhea or dysuria ALLERGIES: Please see below. HOME MEDICATIONS: Please see below. PAST MEDICAL HISTORY: Meningiomas diagnosed in 1999, stable, polymyalgia rh eumatica PAST SURGICAL HISTORY: Bilateral hips replacement FAMILY HISTORY: Father: from aortic aneurysm Mother: Diabetes SOCIAL HISTORY: Tobacco use: Denied ETOH: Denied Illicit drug use: Denied IV drug use: Denied REVIEW OF SYSTEMS: 10 point severe system negative except listed as above PHYSICAL EXAMINATION: VITAL SIGNS: Please see below. GENERAL APPEARANCE: NAD HEENT: PERRLA, EOMI RESPIRATORY: CTA CARDIOVASCULAR: S1-S2, irregular heartbeat with frequent PVCs, heart rate 75 ABDOMEN: Nontender, nondistended EXTREMITIES: Tenderness over left knee area, limited flexion and extension of left knee NEUROLOGICAL: Nonfocal, cranial nerves from 2-12 intact PSYCHIATRIC: Normal mental status LABORATORY DATA: Please see below. ASSESSMENT/PLAN: Patient is 74-year-old female with past medical history of polymyalgia rheumatica, meningiomas, recent hip replacement presented hospital with left knee pain. Patient stated that 6 weeks ago she had left hip replacement and she used a walker and cane and today she twisted her knee and developed severe left knee pain. Patient does not have acute cardiopulmonary, gastrointestinal, renal diseases. Patient does not have any acute infectious process. I recommend EKG to rule out atrial fibrillation due to irregularity of heart rate. However patient is hemodynamic stable, doesn't have any chest pain, does not have any history of coronary artery diseases. Patient stated that she had rhythm irregularities for many years. Vital Signs/I&O Vital Signs Date Time Temp Pulse Resp B/P (MAP) Pulse Ox O2 Delivery O2 Flow Rate FiO2 10/19/19 17:27 10/19/19 17:22 18 98 Room Air 10/19/19 16:37 97.3 79 Allergies Coded Allergies: azithromycin (Unverified Allergy, Unknown, BLOODY STOOL, 09/03/19) ibuprofen (Unverified Allergy, Unknown, BLOODY STOOL, 09/03/19) Home Medications Scheduled Calcium Carbonate (Calcium) 500 Mg Tablet, 500 MG PO DAILY, (Reported) Cholecalciferol (Vitamin D3) (Vitamin D3) 1,000 Unit Tablet, 2,000 UNIT PO DAILY, (Reported) Fluoxetine HCl (Prozac) 20 Mg Capsule, 20 MG PO DAILY, (Reported) Multivitamin (Multivitamins) 1 Each Capsule, 1 CAP PO DAILY, (Reported) Pregabalin (Lyrica) 50 Mg Capsule, 50 MG PO BID, (Reported) Rivaroxaban (Xarelto) 10 Mg Tablet, 10 MG PO DAILY for 34 Days, #34 Scheduled PRN Oxycodone HCl/Acetaminophen (Percocet 5-325 mg Tablet) 1 Each Tablet, 1 TAB PO Q4H PRN for PAIN, #30 CHAVA SHAHID DO Oct 19, 2019 19:47
[2019-10-19] MEDS ORDERED: MORPHINE 2 MG/ML 1ML VIAL (J2270) IV ONE (20:15)
[2019-10-19 20:26] LABS: BASO % 0.5 % (0.0-1.0); EOS # 0.2 10^3/uL (0.0-0.5); EOS % 1.7 % (0.0-3.0); HEMATOCRIT 39.4 % (36.0-47.0); HEMOGLOBIN 12.8 g/dl (12.0-15.5); LYMPH # 2.3 10^3/uL (1.5-5.0); LYMPH % 26.5 % (24.0-44.0); MEAN CORPUSCULAR HEMOGLOBIN 30.6 pg (27.0-33.0); MEAN CORPUSCULAR HGB CONC 32.5 g/dl (32.0-36.5); MEAN CORPUSCULAR VOLUME 94.3 fl (80.0-96.0); MONO # 0.6 10^3/uL (0.0-0.8); MONO % 6.8 % (0.0-5.0); NEUTROPHILS # 5.6 10^3/uL (1.5-8.5); NEUTROPHILS % 64.2 % (36.0-66.0); PLATELET COUNT, AUTOMATED 229 10^3/uL (150-450); RED BLOOD COUNT 4.18 10^6/uL (4.00-5.40); WHITE BLOOD COUNT 8.7 10^3/uL (4.0-10.0)
[2019-10-19 20:36] LABS: INR 1.11
[2019-10-19 20:37] LABS: PARTIAL THROMBOPLASTIN TIME 26.4 SECONDS (25.0-38.4)
[2019-10-19 20:50] LABS: BLOOD UREA NITROGEN 17 MG/DL (7-18); CALCIUM LEVEL 8.8 MG/DL (8.8-10.2); CARBON DIOXIDE LEVEL 30 MEQ/L (21-32); CHLORIDE LEVEL 107 MEQ/L (98-107); CREATININE FOR GFR 0.86 MG/DL (0.55-1.30); GLOMERULAR FILTRATION RATE > 60.0 (>39); GLUCOSE, FASTING 104 MG/DL (70-100); POTASSIUM SERUM 4.2 MEQ/L (3.5-5.1); SODIUM LEVEL 143 MEQ/L (136-145)
--- NOTE | 2019-10-19 22:29 | REPVR ---
PROCEDURE INFORMATION: Exam: MR Left Lower Extremity Joint Without Contrast, Knee Exam date and time: 10/19/2019 7:09 PM Age: 74 years old Clinical history: Difficulty in walking and edema; Yes, it is localized; Knee; Left; Patient HX: Pain, swelling while walking unable to extend; Additional info: W/o contrast. Pain, swelling while walking unable to extend TECHNIQUE: Imaging protocol: MR of the Left lower extremity joint without contrast. Exam focused on the knee. COMPARISON: CT-Knee WITHOUT CONTRAST LEFT 10/19/2019 6:08 PM FINDINGS: The anterior and posterior cruciate ligaments are intact. The medial collateral ligament and lateral collateral complex are normal in appearance. The medial and lateral menisci are normal in morphology and signal intensity. No meniscal tear is identified. The extensor mechanism is intact. There is a full-thickness tear through the midportion of the medial patellofemoral retinaculum. There is mild patellofemoral osteoarthrosis. There is mild medial and lateral compartment chondromalacia and osteophytosis. There are well-corticated ossicles along the superior and medial aspects of the patella. There is no evidence of acute fracture or dislocation. There is mild subcortical cystic change along the medial patellar facet. Bone marrow signal is otherwise normal. Alignment is anatomic. There is a large lipohemarthrosis with associated synovitis. IMPRESSION: 1. Full-thickness tear through the midportion of the medial patellofemoral retinaculum. 2. Large lipohemarthrosis. 3. Additional findings, as above. Electronically signed by: Arthur Randall On 10/19/2019 22:29:16 PM
[2019-10-19] MEDS ORDERED: MORPHINE 2 MG/ML 1ML VIAL (J2270) IV PRN (22:45)
[2019-10-19] MEDS ORDERED: ONDANSETRON 4MG/2ML VIAL (J2405) IV PRN (23:00)
[2019-10-20] VITALS: BP 154/90
[2019-10-20] MEDS: NORCO, ANEXSIA 5/325MG TABLET (HYDROcodone/ACETAMINOPHEN) PO PRN ×2 (00:21→05:37)
[2019-10-20] MEDS: LR 1,000 ML IV SCH ×2 (00:29→11:18)
[2019-10-20 06:00] VITALS: BP 162/84
[2019-10-20] MEDS ORDERED: ceFAZolin SOD 2 GM in IV 1 EA IV SCH (06:00)
[2019-10-20] MEDS ORDERED: LIDOCAINE 1% SDV INJ 30 ML VIAL SC SCH (06:30)
--- NOTE | 2019-10-20 07:29 | REP ---
REASON FOR EXAM: Knee pain. There is either chronic change from DJD or an age-undetermined avulsion fracture involving the superior pole of the patella adjacent to the articular surface. There is a large soft tissue density seen in the suprapatellar bursal region. There is patellar marginal osteophytosis. There is medial and lateral compartmental marginal osteophytosis. IMPRESSION: 1. Chronic changes. 2. Possible acute upon chronic change as described above. 3. This exam cannot rule out rule out either patellar or quadriceps tendon rupture. There is what appears to be a large suprapatellar effusion. There is decreased density inferior to the patella which could possibly represent a patellar tendon rupture. That needs to be correlated clinically and if necessary, obtain an MRI. Electronically Signed by Andrew Pandey DO 10/20/2019 09:21 A
[2019-10-20] MEDS ORDERED: NORCO, ANEXSIA 5/325MG TABLET (HYDROcodone/ACETAMINOPHEN) PO PRN (08:15)
[2019-10-20] MEDS: MOM 30ML SUSPENSION UDC PO SCH (09:00)
[2019-10-20] MEDS: MIRALAX *UNIT DOSE* 17GM PACKET PO SCH (09:00)
--- NOTE | 2019-10-20 12:58 | ECGEPIP ---
[facility] - ED Test Date: 2019-10-19 Pat Name: MACIEJ IZQUIERDO Department: Room: [place] [address] Gender: Female Sample Examiner: [email or web address] : 1945 Requested By: TANO MCWILLIAMS PA-C. Order Number: [id number] Reading MD: Annia Dai Measurements Intervals [place] Rate: 63 P: 112 SD: 164 QRS: 133 QRSD: 105 T: 186 QT: 438 QTc: 450 Interpretive Statements SINUS RHYTHM WITH OCCASIONAL VENTRICULAR PREMATURE COMPLEXES ARM LEADS REVERSED - SUSPECT NONSPECIFIC ST T WAVE CHANGES BORDERLINE PROLONGED QTC CW 08/13/[address] T WAAVE CHANGES CLINICAL CORRELATION ADVISED Electronically Signed on 10-20-2019 12:58:15 EST by Annia Dai
[2019-10-20] MEDS ORDERED: GASTROGRAFIN SOLUTION 30ML PO SCH (13:05)
[2019-10-20 14:00] VITALS: BP 124/60
--- NOTE | 2019-10-20 15:21 | IPNPDOC ---
Date Seen The patient was seen on 10/20/19. Progress Note SUBJECTIVE: Patient has no complaints today. She had a hemarthrosis this morning by Dr. Costello, she will be reevaluated later this afternoon to see if she needs to have surgery versus conservative therapy. She does admit to left knee discomfort but denies chest pain, shortness breath, nausea, vomiting, fevers, chills OBJECTIVE PHYSICAL EXAMINATION: VITAL SIGNS: Please see below. GENERAL: Pleasant sitting up in bed awake alert oriented speaking in complete sentences no acute distress HEENT: Moist mucous membranes no elevation in CVP CARDIOVASCULAR: S1 S2 regular with occasional PVC no audible murmurs or additional heart sounds appreciated. RESPIRATORY: Clear to auscultation bilaterally. ABDOMINAL: Bowel sounds present abdomen soft and nontender EXTREMITIES: Left lower extremity: Tenderness over the right knee. Wrapped in Umberto bandage. Mild swelling appreciated. Unable to test range of motion due to pain. Normal range of motion in all 4 planes in the right lower extremity. No tenderness of palpation. tenderness bilaterally. NEUROLOGICAL: Spontaneously moves all 4 extremities cranial 2 through 12 grossly intact no gross focal deficits appreciated PSYCHOLOGICAL: Appropriate LABORATORY DATA, MICROBIOLOGY: Please see below. IMAGING STUDIES: 10/19/2019 Knee x-ray 1. Chronic changes. 2. Possible acute upon chronic change as described above. 3. This exam cannot rule out rule out either patellar or quadriceps tendon rupture. There is what appears to be a large suprapatellar effusion. There is decreased density inferior to the patella which could possibly represent a patellar tendon rupture. That needs to be correlated clinically and if necessary, obtain an MRI. Extremity CT Large knee joint hemarthrosis, of uncertain etiology. Consider further evaluation with MRI. Knee MRI 1. Full-thickness tear through the midportion of the medial patellofemoral retinaculum. 2. Large lipohemarthrosis. ASSESSMENT AND PLAN: This is a 74-year-old female with partial patella tendon rupture on the left PROBLEMS: Left partial patella tendon rupture -Management per orthopedics History of polymyalgia rheumatica History of meningioma History of recent hip replacement No history of acute cardiopulmonary, gastrointestinal, renal disease. -EKG in the ER shows sinus rhythm with occasional PVCs rate controlled. DVT prophylaxis: TEDs and sequential DISPOSITION: Per orthopedic VS, I&O, 24H, Fishbone Vital Signs/I&O Vital Signs Date Time Temp Pulse Resp B/P (MAP) Pulse Ox O2 Delivery O2 Flow Rate FiO2 10/20/19 14:00 97.6 76 14 124/60 (81) 90 Room Air I&O- Last 24 Hours up to 6 AM 10/20/19 05:59 Intake Total 60 ml Balance 60 ml Laboratory Data 24H LABS Laboratory Tests 2 10/19/19 20:14: Immature Granulocyte % (Auto) 0.3, Neutrophils (%) (Auto) 64.2, Lymphocytes (%) (Auto) 26.5, Monocytes (%) (Auto) 6.8H, Eosinophils (%) (Auto) 1.7, Basophils (%) (Auto) 0.5, Neutrophils # (Auto) 5.6, Lymphocytes # (Auto) 2.3, Monocytes # (Auto) 0.6, Eosinophils # (Auto) 0.2, Basophils # (Auto) 0.0, Nucleated Red Blood Cells % (auto) 0.0, Prothrombin Time 14.0, Prothromb Time International Ratio 1.11, Activated Partial Thromboplast Time 26.4, Anion Gap 6L, Glomerular Filtration Rate > 60.0, Calcium Level 8.8 CBC/BMP Laboratory Tests 10/19/19 20:14 GME ATTESTATION GME ATTESTATION My faculty preceptor for this patient encounter was physically present during the encounter and was fully available. All aspects of the patient interview, examination, medical decision making process, and medical care plan development were reviewed and approved by the faculty preceptor. The faculty preceptor is aware and concurs with the plan as stated in the body of this note and will a ttest to such by his/her cosignature. ATTENDING NOTE Pt was seen and examined by me personally. Agree with the above assessment and plan . TRICIA RABAGO DO Oct 20, 2019 15:21 NICCI RUTLEDGE MD Oct 20, 2019 16:30
[2019-10-20 20:30] VITALS: BP 118/62
[2019-10-21 05:20] VITALS: BP 154/77
[2019-10-21] MEDS ORDERED: HYDR-3713 PO (05:58)
[2019-10-21] MEDS: MOM 30ML SUSPENSION UDC PO SCH (08:25)
[2019-10-21] MEDS: MIRALAX *UNIT DOSE* 17GM PACKET PO SCH (08:25)
[2019-10-21] MEDS: NORCO, ANEXSIA 5/325MG TABLET (HYDROcodone/ACETAMINOPHEN) PO PRN (08:26)
--- NOTE | 2019-10-21 10:43 | HPE ---
DATE OF ADMISSION: 10/19/2019 INDICATION: Left extensor mechanism disruption. HISTORY OF PRESENT ILLNESS: Francesca Petit is a very pleasant 74-year-old female roughly 6 weeks out from a right total hip arthroplasty by Dr. Flores who had her left knee give out on her on 10/19/2019 when she was walking. She denies any patellar dislocation. Denies specifically falling on the knee. She does not know why it give out on her but it just gave out and she had immediate pain and swelling and inability to bear weight. She was evaluated in the emergency department where she had significant tenderness over the quad tendon and she was unable to perform a straight-leg raise. X-rays and CT scan showed a large joint effusion with hemarthrosis. No fracture. An MRI was then requested, which showed a tear of the medial retinaculum and suggestive of partial tear of the patellar tendon. She was admitted for observation and possible surgical intervention. She denied any worsening right hip pain. PAST MEDICAL HISTORY: 1. Polymyalgia rheumatica. 2. Meningioma. 3. Hip arthritis. PAST SURGICAL HISTORY: Bilateral total hip arthroplasty. MEDICATIONS: - vitamin D - Prozac - calcium - multivitamin - Lyrica The patient was previously on Xarelto for deep vein thrombosis (DVT) prophylaxis from her hip replacement that had been finished for 8 days. ALLERGIES: AZITHROMYCIN, IBUPROFEN caused bloody stools. SOCIAL HISTORY: The patient does not smoke, abuse alcohol or illicit drugs. Her daughter is one of the rehab hospitalists. REVIEW OF SYSTEMS: The patient denies cardiac, pulmonary, abdominal or neurologic symptoms. Musculoskeletal: As above. PHYSICAL EXAMINATION: Reveals a female in no distress. Alert and oriented times three. Neurologic: Appropriate mood and affect. She is pleasant to talk to. Cardiovascular: 2+ PT and DP pulses. Pulmonary: Nonlabored breathing. Abdomen: Soft, nontender, nondistended. Musculoskeletal: Large joint effusion in the left knee. She was unable to perform a straight leg raise. Quadriceps muscle was not firing. There was no gap at the patellar tendon attachment to the patella. There is significant tenderness to palpation at the proximal pole of the patella and the quad tendon. She had tenderness over the medial retinaculum. Grade 1 A Estrada. The knee was grossly stable to varus and valgus stress. Calf soft and nontender. She had 5/5 EHL, FHL, TA and GS. Sensation to light touch in the foot was intact. She had no left hip pain with log roll or axial load. RADIOLOGY: X-rays and CT scan showed no fractures but a large joint effusion with a blood fluid level. MRI the left knee showed a tear of the medial retinaculum with poor tension to the patellar tendon on sagittal imaging due to probable partial disruption but no full-thickness tear. ASSESSMENT/PLAN: Francesca Higgins is a 74-year-old female with left knee extensor mechanism disruption. This is due to a combination of medial retinacular tearing, probable partial patellar tendon tearing and quadriceps atony. She was evaluated by the hospitalist for medical clearance for possible surgery. I was able to review her MRI with her total hip surgeon and we agreed the best course of action would be knee aspiration with repeat exam. No immediate indication for surgery. The risks and benefits of the left knee aspiration were discussed with the patient. Written informed consent obtained. Left knee was sterilely prepped with rubbing alcohol, and I injected 2 mL of 1% lidocaine with a 25 gauge needle to anesthetize the skin. Five minutes later, using sterile gloves, I prepped the knee with Betadine. I then used an 18 gauge needle and aspirated 70 mL of bloody joint fluid. I then applied a sterile bandage. I then asked the patient to actively extend the left knee lifting the left foot off the bed and she did have intact weak active extension. She had an extensor lag when asked to maintain the extension; however, this was a dramatic improvement in her examination. This response to the knee aspiration further supports the diagnosis of quad atony. I recommend an initial trial of nonoperative treatment with a hinged knee brace locked in extension and gentle range of motion. She will follow up in the office in 3 days with one of the physician assistants, start physical therapy, see me in 10-14 days. At the time of dictation, the patient has cleared physical therapy for discharge home.
--- NOTE | 2019-10-21 15:53 | IPN ---
DATE: 10/21/2019 The patient says that she is going home today, "I am not due for pain medication yet." Describes the pain as 3 out of 10 at the bedside when she is lying down, increases when she ambulates to 7 or 8 out of 10. PHYSICAL EXAMINATION: Temperature 98, pulse 65, respiratory rate 17, blood pressure 154/77, 94% on room air. GENERAL: Awake, alert, oriented times three. Texting at the bedside on her cellphone. Moist mucous membranes. LUNGS: Clear to auscultation. No wheezing, rales or rhonchi. HEART: S1, S2. Sinus rhythm. ABDOMEN: Soft, nontender, nondistended. Positive bowel sounds. EXTREMITIES: No cyanosis, clubbing or pitting edema. The patient has a bandage in the left knee, otherwise no pitting edema. ASSESSMENT AND PLAN: This is a 74-year-old who had a patellar tendon rupture on the left with recent hip replacement. The patient is working with physical therapy (PT) and is stable for hospital discharge. IMPRESSION: 1. Left patellar tendon rupture. Currently on [place] two tablets every 4 hours. Bowel regimen with milk of mag and MiraLAX. 2. Recent hip fracture. Per orthopedic surgery followup. 3. History of meningioma, stable. 4. History of polymyalgia rheumatica. No acute issues. 5. Deep vein thrombosis (DVT) prophylaxis. Per orthopedic surgery. MTDD
--- NOTE | 2019-10-25 19:55 | DSES ---
DATE OF ADMISSION: 10/19/2019 DATE OF DISCHARGE: 10/21/2019 ADMISSION DIAGNOSIS: Post left patellar tendon rupture. OTHER DIAGNOSES: 1. Polymyalgia rheumatica. 2. Meningioma. 3. Hip arthritis. HISTORY: This is a 74-year-old female patient who is 6 weeks status post right total hip arthroplasty with Dr. Flores, who suffered a patellar tendon rupture. Patient was admitted the emergency department when MRI showed a partial tear of the patellar tendon and medial retinaculum for observation, pain control, and surgical intervention. She was seen by Dr. Brandon Costello who discussed and opted with the patient for conservative care, nonoperative treatment. Her pain was controlled on the day of discharge, as were her medical problems. She was placed in a hinge knee brace locked in extension to work on gentle range of motion with physical therapy. She will continue her precautions in regard to her total hip arthroplasty. Pain was controlled on the day of discharge. She will use oral pain medications for pain control. Followup in our office in 3 days with a physician data entry assistant to start physical therapy and 10-[address] Brandon Costello.
== END 2019-10-21 10:05 | disposition home or self-care (01) | DRG 558 ==
LOC: M ED 16:37 → M ED INP 22:18 → M MS5PR 23:45
PROVIDERS: ADMIT Orthopaedic Surgery; ATTEND Orthopaedic Surgery
PROC: 0S9D3ZZ Drainage of Left Knee Joint, Percutaneous Approach (ICD-10-PCS; principal; 2019-10-19)
DX: M66.38 Spontaneous rupture of flexor tendons, other site (principal); M35.3 Polymyalgia rheumatica; Z96.641 Presence of right artificial hip joint; Z96.642 Presence of left artificial hip joint; M25.462 Effusion, left knee

== ENCOUNTER → 2021-04-21 | Outpatient (REF) | payer MEDICARE, BC ==
[~2021-04-21] MED LIST changes: +HYDR-3713 PO
[2021-04-21 10:52] LABS: BASO % 0.8 % (0.0-1.0); EOS # 0.3 10^3/uL (0.0-0.5); EOS % 4.7 % (0.0-3.0); HEMATOCRIT 45.6 % (36.0-47.0); HEMOGLOBIN 14.8 g/dl (12.0-15.5); LYMPH # 2.4 10^3/uL (1.5-5.0); LYMPH % 45.1 % (24.0-44.0); MEAN CORPUSCULAR HEMOGLOBIN 29.9 pg (27.0-33.0); MEAN CORPUSCULAR HGB CONC 32.5 g/dl (32.0-36.5); MEAN CORPUSCULAR VOLUME 92.1 fl (80.0-96.0); MONO # 0.5 10^3/uL (0.0-0.8); MONO % 8.5 % (2.0-8.0); NEUTROPHILS # 2.2 10^3/uL (1.5-8.5); NEUTROPHILS % 40.7 % (36.0-66.0); PLATELET COUNT, AUTOMATED 241 10^3/uL (150-450); RED BLOOD COUNT 4.95 10^6/uL (4.00-5.40); WHITE BLOOD COUNT 5.3 10^3/uL (4.0-10.0)
[2021-04-21 11:22] LABS: ALBUMIN 3.9 GM/DL (3.2-5.2); ALT/SGPT 26 U/L (12-78); BILIRUBIN,TOTAL 0.9 MG/DL (0.2-1.0); BLOOD UREA NITROGEN 13 MG/DL (7-18); C REACTIVE PROTEIN QUANTITATIV 0.74 MG/DL (0.00-0.30); CALCIUM LEVEL 9.1 MG/DL (8.8-10.2); CARBON DIOXIDE LEVEL 27 MEQ/L (21-32); CHLORIDE LEVEL 108 MEQ/L (98-107); CHOLESTEROL LEVEL 194 MG/DL (<200); CHOLESTEROL RISK RATIO 2.811 (<5); CREATININE FOR GFR 0.73 MG/DL (0.55-1.30); GLOMERULAR FILTRATION RATE > 60.0 (>39); GLUCOSE, FASTING 101 MG/DL (70-100); HDL CHOLESTEROL 69 MG/DL (>40); LDL CHOLESTEROL 95 MG/DL (<100); MAGNESIUM LEVEL 2.2 MG/DL (1.8-2.4); NON-HDL-C 125 MG/DL; POTASSIUM SERUM 4.4 MEQ/L (3.5-5.1); SODIUM LEVEL 141 MEQ/L (136-145); TOTAL PROTEIN 7.2 GM/DL (6.4-8.2); TRIGLYCERIDES LEVEL 149 MG/DL (<150)
[2021-04-21 11:29] LABS: TOTAL 25(OH) VITAMIN D 57.3 NG/ML (30.0-100.0)
[2021-04-21 11:32] LABS: ERYTHROCYTE SEDIMENTATION RATE 7 mm/hr (0-30)
== END ==
LOC: M SFHCPLAZ 08:54
PROVIDERS: ATTEND Internal Medicine
DX: M35.3 Polymyalgia rheumatica (principal); E78.00 Pure hypercholesterolemia, unspecified; I10 Essential (primary) hypertension; M81.0 Age-related osteoporosis without current pathological fracture

== ENCOUNTER → 2022-05-05 | Outpatient (CLI) | payer MEDICARE, BC ==
[2022-05-05 13:21] LABS: BASO % 0.7 % (0.0-1.0); EOS # 0.3 10^3/uL (0.0-0.5); HEMATOCRIT 44.6 % (36.0-47.0); HEMOGLOBIN 14.7 g/dl (12.0-15.5); LYMPH # 2.7 10^3/uL (1.5-5.0); LYMPH % 47.9 % (24.0-44.0); MEAN CORPUSCULAR HEMOGLOBIN 30.8 pg (27.0-33.0); MEAN CORPUSCULAR VOLUME 93.5 fl (80.0-96.0); MONO # 0.4 10^3/uL (0.0-0.8); MONO % 7.5 % (2.0-8.0); NEUTROPHILS # 2.2 10^3/uL (1.5-8.5); NEUTROPHILS % 38.7 % (36.0-66.0); PLATELET COUNT, AUTOMATED 234 10^3/uL (150-450); RED BLOOD COUNT 4.77 10^6/uL (4.00-5.40); WHITE BLOOD COUNT 5.6 10^3/uL (4.0-10.0)
[2022-05-05 13:59] LABS: ERYTHROCYTE SEDIMENTATION RATE 9 mm/hr (0-30)
[2022-05-05 14:22] LABS: ALBUMIN 3.7 GM/DL (3.2-5.2); ALT/SGPT 21 U/L (12-78); BILIRUBIN,TOTAL 1.1 MG/DL (0.2-1.0); BLOOD UREA NITROGEN 15 MG/DL (7-18); C REACTIVE PROTEIN QUANTITATIV 0.64 MG/DL (0.00-0.30); CARBON DIOXIDE LEVEL 30 MEQ/L (21-32); CHLORIDE LEVEL 105 MEQ/L (98-107); CHOLESTEROL LEVEL 157 MG/DL (<200); CHOLESTEROL RISK RATIO 2.754 (<5); CREATININE FOR GFR 0.94 MG/DL (0.55-1.30); FOLATE > 24.0 NG/ML (>5.4); GLOMERULAR FILTRATION RATE > 60.0 (>39); GLUCOSE, FASTING 93 MG/DL (70-100); HDL CHOLESTEROL 57 MG/DL (>40); LDL CHOLESTEROL 71 MG/DL (<100); NON-HDL-C 100 MG/DL; POTASSIUM SERUM 4.7 MEQ/L (3.5-5.1); SODIUM LEVEL 139 MEQ/L (136-145); TOTAL PROTEIN 6.9 GM/DL (6.4-8.2); TRIGLYCERIDES LEVEL 143 MG/DL (<150); VITAMIN B12 LEVEL 641 PG/ML (247-911)
[2022-05-05 14:30] LABS: HEPATITIS C VIRUS ABY INDEX 0.1 INDEX (<0.8)
== END ==
LOC: M PLALAB 08:48
PROVIDERS: ATTEND Internal Medicine
DX: I10 Essential (primary) hypertension (principal); E78.00 Pure hypercholesterolemia, unspecified; M35.3 Polymyalgia rheumatica

== ENCOUNTER → 2023-03-21 | Outpatient (CLI) | payer MEDICARE, BC, OTHER ==
[2023-03-21 15:46] LABS: ALBUMIN 3.8 G/DL (3.2-5.2); ALKALINE PHOSPHATASE 94 U/L (46-116); ALT/SGPT 22 U/L (7.0-40); AST/SGOT 18 U/L (<34); BILIRUBIN,TOTAL 0.7 MG/DL (0.3-1.2); BLOOD UREA NITROGEN 16 MG/DL (9-23); CARBON DIOXIDE LEVEL 29 MMOL/L (20-31); CHLORIDE LEVEL 105 MMOL/L (98-107); CREATININE FOR GFR 0.77 MG/DL (0.55-1.30); GLOMERULAR FILTRATION RATE > 60.0 (>39); GLUCOSE, FASTING 80 MG/DL (74-106); POTASSIUM SERUM 4.8 MMOL/L (3.5-5.1); SODIUM LEVEL 140 MMOL/L (136-145); TOTAL PROTEIN 6.8 G/DL (5.7-8.2)
[2023-03-21 15:48] LABS: FREE T4 0.78 NG/DL (0.89-1.76)
[2023-03-21 15:53] LABS: BASO % 0.4 % (0.0-1.0); EOS # 0.3 10^3/uL (0.0-0.5); EOS % 5.8 % (0.0-3.0); HEMATOCRIT 44.7 % (36.0-47.0); HEMOGLOBIN 14.4 g/dl (12.0-15.5); LYMPH # 1.8 10^3/uL (1.5-5.0); LYMPH % 34.5 % (24.0-44.0); MEAN CORPUSCULAR HEMOGLOBIN 30.4 pg (27.0-33.0); MEAN CORPUSCULAR HGB CONC 32.2 g/dl (32.0-36.5); MEAN CORPUSCULAR VOLUME 94.3 fl (80.0-96.0); MONO # 0.5 10^3/uL (0.0-0.8); NEUTROPHILS # 2.7 10^3/uL (1.5-8.5); NEUTROPHILS % 50.1 % (36.0-66.0); PLATELET COUNT, AUTOMATED 241 10^3/uL (150-450); RED BLOOD COUNT 4.74 10^6/uL (4.00-5.40); WHITE BLOOD COUNT 5.3 10^3/uL (4.0-10.0)
[2023-03-21 16:11] LABS: ERYTHROCYTE SEDIMENTATION RATE 25 mm/hr (0-30)
== END ==
LOC: M PLALAB 12:07
PROVIDERS: ATTEND Physician Assistant
DX: R21 Rash and other nonspecific skin eruption (principal); Z79.899 Other long term (current) drug therapy

== ENCOUNTER → 2023-05-24 | Outpatient (CLI) | payer MEDICARE, BC, OTHER ==
[2023-05-24 14:37] LABS: HEMATOCRIT 43.5 % (36.0-47.0); HEMOGLOBIN 14.1 g/dl (12.0-15.5); MEAN CORPUSCULAR HEMOGLOBIN 30.1 pg (27.0-33.0); MEAN CORPUSCULAR HGB CONC 32.4 g/dl (32.0-36.5); MEAN CORPUSCULAR VOLUME 92.9 fl (80.0-96.0); PLATELET COUNT, AUTOMATED 250 10^3/uL (150-450); RED BLOOD COUNT 4.68 10^6/uL (4.00-5.40); WHITE BLOOD COUNT 5.5 10^3/uL (4.0-10.0)
[2023-05-24 15:01] LABS: HEMOGLOBIN A1c 5.4 % (4.0-6.0)
[2023-05-24 15:09] LABS: C REACTIVE PROTEIN QUANTITATIV 0.8 MG/DL (<1.0); CREATININE, URINE 199.2 MG/DL
[2023-05-24 15:11] LABS: THYROID STIMULATING HORMONE 1.406 uIU/ML (0.55-4.78); TOTAL 25(OH) VITAMIN D 35.8 NG/ML (20.0-100.0)
== END ==
LOC: M PLALAB 09:54
PROVIDERS: ATTEND Internal Medicine Hematology
DX: E78.01 Familial hypercholesterolemia (principal); Z79.899 Other long term (current) drug therapy

== ENCOUNTER → 2024-05-23 | Outpatient (CLI) | payer MEDICARE, BC ==
[2024-05-23 14:33] LABS: BASO % 0.7 % (0.0-1.0); C REACTIVE PROTEIN QUANTITATIV 1.1 MG/DL (<1.0); EOS # 0.2 10^3/uL (0.0-0.5); EOS % 3.3 % (0.0-3.0); HEMOGLOBIN 13.9 g/dl (12.0-15.5); LYMPH # 2.2 10^3/uL (1.5-5.0); MEAN CORPUSCULAR HEMOGLOBIN 31.2 pg (27.0-33.0); MEAN CORPUSCULAR HGB CONC 33.1 g/dl (32.0-36.5); MEAN CORPUSCULAR VOLUME 94.2 fl (80.0-96.0); MONO # 0.5 10^3/uL (0.0-0.8); MONO % 8.3 % (2.0-8.0); NEUTROPHILS # 3.1 10^3/uL (1.5-8.5); NEUTROPHILS % 51.5 % (36.0-66.0); PLATELET COUNT, AUTOMATED 202 10^3/uL (150-450); RED BLOOD COUNT 4.46 10^6/uL (4.00-5.40)
[2024-05-23 14:37] LABS: FREE T4 0.73 NG/DL (0.89-1.76); THYROID STIMULATING HORMONE 1.995 uIU/ML (0.55-4.78)
[2024-05-23 15:12] LABS: HEMOGLOBIN A1c 5.4 % (4.0-6.0)
== END ==
LOC: M PLALAB 10:25
PROVIDERS: ATTEND Internal Medicine Hematology
DX: M19.90 Unspecified osteoarthritis, unspecified site (principal); I10 Essential (primary) hypertension; Z79.899 Other long term (current) drug therapy

== ENCOUNTER → 2024-09-24 | Outpatient (CLI) | payer MEDICARE, BC | LOC: M PLAIMG 10:31 | PROVIDERS: ATTEND Internal Medicine Hematology | DX: R10.31 Right lower quadrant pain (principal) ==

== ENCOUNTER 2024-12-03 08:17 | Emergency (ER) | payer MEDICARE, BC ==
[~2024-12-03] VITALS: Ht 167.6 cm; Wt 86.4 kg
[2024-12-03] MEDS ORDERED: METH-1164 PO (08:55)
[2024-12-03] MEDS ORDERED: NATU400C6 PO (08:55)
[2024-12-03] MEDS ORDERED: CIDA500T2 PO (08:55)
[2024-12-03] MEDS ORDERED: TUME1CAP PO (08:55)
[2024-12-03] MEDS ORDERED: SEMA0.252 SQ (08:55)
[2024-12-03] MEDS: ACETAMINOPHEN 325 MG TAB PO ONE (12:43)
[2024-12-03] MEDS: KETOROLAC 30 MG/ML 1ML VIAL IV ONE (12:43)
[2024-12-03] MEDS: KETOROLAC 30 MG/ML 1ML VIAL IM ONE (12:45)
[2024-12-03] MEDS ORDERED: NAPR-837 PO (13:48)
[2024-12-03 13:53] VITALS: BP 129/59; TEMP 97.6; O2SAT 96
== END 2024-12-03 13:59 | disposition home or self-care (01) ==
LOC: M ED 08:17
DX: M46.1 Sacroiliitis, not elsewhere classified (principal); Z88.1 Allergy status to other antibiotic agents; Z88.8 Allergy status to other drugs, medicaments and biological substances; Z79.810 Long term (current) use of selective estrogen receptor modulators (SERMs); Z79.899 Other long term (current) drug therapy
CPT/HCPCS: 73502; 96372; 99283; J1885

== ENCOUNTER → 2025-01-24 | Outpatient (CLI) | payer MEDICARE, BC ==
[~2025-01-24] MED LIST changes: +CIDA500T2 PO; +METH-1164 PO; +NAPR-837 PO; +NATU400C6 PO; +SEMA0.252 SQ; +TUME1CAP PO
[2025-01-24 11:26] LABS: HEMATOCRIT 41.9 % (36.0-47.0); HEMOGLOBIN 13.7 g/dl (12.0-15.5); MEAN CORPUSCULAR HEMOGLOBIN 30.2 pg (27.0-33.0); MEAN CORPUSCULAR HGB CONC 32.7 g/dl (32.0-36.5); MEAN CORPUSCULAR VOLUME 92.5 fl (80.0-96.0); PLATELET COUNT, AUTOMATED 240 10^3/uL (150-450); RED BLOOD COUNT 4.53 10^6/uL (4.00-5.40); WHITE BLOOD COUNT 7.4 10^3/uL (4.0-10.0)
[2025-01-24 11:38] LABS: ERYTHROCYTE SEDIMENTATION RATE 15 mm/hr (0-30)
[2025-01-24 11:42] LABS: HEMOGLOBIN A1c 5.2 % (4.0-6.0)
[2025-01-24 11:45] LABS: LIPASE 57 U/L (12-53)
[2025-01-24 11:47] LABS: AMYLASE 63 U/L (30-118)
[2025-01-24 11:48] LABS: ALBUMIN 3.9 G/DL (3.2-5.2); ALKALINE PHOSPHATASE 77 U/L (35-104); ALT/SGPT 22 U/L (7.0-40); AST/SGOT 14 U/L (<34); BILIRUBIN,TOTAL 0.9 MG/DL (0.3-1.2); BLOOD UREA NITROGEN 24 MG/DL (9-23); CALCIUM LEVEL 9.2 MG/DL (8.3-10.6); CARBON DIOXIDE LEVEL 27 MMOL/L (20-31); CHLORIDE LEVEL 108 MMOL/L (98-107); CHOLESTEROL LEVEL 192 MG/DL (<200); CHOLESTEROL RISK RATIO 3.35 (<5); CREATININE FOR GFR 0.78 MG/DL (0.55-1.30); GLOMERULAR FILTRATION RATE > 60.0 (>39); GLUCOSE, FASTING 93 MG/DL (74-106); HDL CHOLESTEROL 57.3 MG/DL (>40); LDL CHOLESTEROL 111.9 MG/DL (<100); NON-HDL-C 134.7 MG/DL; POTASSIUM SERUM 4.6 MMOL/L (3.5-5.1); SODIUM LEVEL 144 MMOL/L (136-145); TOTAL PROTEIN 6.9 G/DL (5.7-8.2); TRIGLYCERIDES LEVEL 114 MG/DL (<150)
[2025-01-24 11:51] LABS: FREE T4 1.22 NG/DL (0.89-1.76); THYROID STIMULATING HORMONE 2.079 uIU/ML (0.55-4.78); TOTAL 25(OH) VITAMIN D 43.6 NG/ML (20.0-100.0)
[2025-01-24 11:52] LABS: VITAMIN B12 LEVEL 724 PG/ML (211-911)
== END ==
LOC: M PLALAB 09:13
PROVIDERS: ATTEND Nurse Practitioner Adult Health
DX: I10 Essential (primary) hypertension (principal)

== ENCOUNTER → 2025-09-17 | Outpatient (CLI) | payer MEDICARE, BC ==
[~2025-09-17] MED LIST changes: -PREG50CA PO; +PREG50CA87 PO; -PROZ20CA11 PO; +PROZ20CA12 PO
[2025-09-17 10:47] LABS: PLATELET COUNT, AUTOMATED 230 10^3/uL (150-450)
[2025-09-17 10:51] LABS: ALT/SGPT 15.0 U/L (7.0-40); AST/SGOT 20.0 U/L (<34); CALCIUM LEVEL 9.4 MG/DL (8.3-10.6); CARBON DIOXIDE LEVEL 31.0 MMOL/L (20-31); CHLORIDE LEVEL 104.0 MMOL/L (98-107); CHOLESTEROL LEVEL 191.0 MG/DL (<200); CHOLESTEROL RISK RATIO 3.45 (<5); CREATININE FOR GFR 0.78 MG/DL (0.55-1.30); GLOMERULAR FILTRATION RATE 77.7 (>39); LDL CHOLESTEROL 106.9 MG/DL (<100); MAGNESIUM LEVEL 2.1 MG/DL (1.8-2.4); NON-HDL-C 135.7 MG/DL; POTASSIUM SERUM 4.4 MMOL/L (3.5-5.1); SODIUM LEVEL 142.0 MMOL/L (136-145); TRIGLYCERIDES LEVEL 144.0 MG/DL (<150)
[2025-09-17 10:55] LABS: FREE T4 0.94 NG/DL (0.89-1.76)
[2025-09-17 11:16] LABS: ESTIMATED AVERAGE GLUCOSE 105.0 MG/DL (60-110)
== END ==
LOC: M PLALAB 08:10
PROVIDERS: ATTEND Nurse Practitioner Adult Health
DX: I10 Essential (primary) hypertension (principal); E78.00 Pure hypercholesterolemia, unspecified; E55.9 Vitamin D deficiency, unspecified; Z13.1 Encounter for screening for diabetes mellitus